=== PATIENT | female | born 1935 | race Caucasian/White ===

== ENCOUNTER 2020-04-19 08:36 | Outpatient (CLI) | payer MEDICARE ==
--- NOTE | 2020-04-19 15:45 | NM ---
Nuclear medicine gastric emptying scan: 04/19/2020 HISTORY: 85-year-old female with abdominal distention and bloating. TECHNIQUE: 2 mCi technetium 99m-sulfur colloid served in scrambled egg meal. Anterior scintigraphic views obtained periodically. Counts obtained over the stomach, and used to plot time-activity curve. FINDINGS: The immediate image demonstrates activity throughout the esophagus, which could represent gastroesoph ageal reflux. Percentage emptying by time: 30 minutes: 0% 1 hour: 0% 2 hours: 2% 3 hours: 17% 4 hours: 17% Time activity curve essentially flat. Some activity is visualized in bowel on the 30 minute image, and in the 2, 3, and 4 hour images. IMPRESSION: Severely delayed gastric emptying.
== END 2020-04-19 08:37 | disposition home or self-care (01) ==
LOC: NM 08:36
PROVIDERS: ATTEND Internal Medicine Gastroenterology
DX: R14.0 Abdominal distension (gaseous) (principal)
CPT/HCPCS: 78264; A9541

== ENCOUNTER 2020-04-29 10:34 | Outpatient (CLI) | payer MEDICARE ==
[~2020-04-29 10:34] MED LIST: Iopamidol-370 76% 500 ML 1 ML ONE
--- NOTE | 2020-04-29 11:28 | CT ---
CT abdomen and pelvis with IV and oral contrast HISTORY: Abdominal pain and distention. Bloating. COMPARISON: 03/18/2017. FINDINGS: The lung bases are clear. The gallbladder, appendix, and uterus are surgically absent. Tiny cysts involving each kidney are stable. Very small sliding hiatal hernia is unchanged in appearance. The obliquely oriented linear focus of soft tissue density along the far right lateral aspect of the peritoneum underlying the right iliac crest is again demonstrated. It is 3.9 cm greatest length by 0.6 cm depth on today's exam, with a tiny focus of dystrophic calcification at the posterior margin. Unchanged from the prior exam. No evidence of bowel obstruction or inflammation. Postoperative and prominent degenerative changes of the lumbar spine. Soft tissue density with the ap pearance of disc material extends posterolaterally to the right, into the right neural foramen at the L3-4 level. IMPRESSION : No evidence of bowel obstruction or acute inflammation. Focal area of peritoneal scarring along the right lower quadrant stable. Prominent degenerative changes lumbar spine. Possible right lateral disc herniation at the L3-4 level . Clinical correlation regarding the right L3 dermatome is required.
== END 2020-04-29 10:35 | disposition home or self-care (01) ==
LOC: BICCT 10:34
PROVIDERS: ATTEND Internal Medicine Gastroenterology
DX: R14.0 Abdominal distension (gaseous) (principal); R11.0 Nausea; K30 Functional dyspepsia; M47.816 Spondylosis without myelopathy or radiculopathy, lumbar region
CPT/HCPCS: 74177; 82565; Q9967